=== PATIENT | female | born 1945 | race Caucasian/White ===

== ENCOUNTER → 2017-03-31 | Day surgery (SDC) | payer OTHER ==
[~2017-03-31] VITALS: Ht 167.6 cm; Wt 88.0 kg
[~2017-03-31] MED LIST: ALBU8.5H2 INHALATION; ASPI-973 PO; CITA40TA13 PO; LOSA25TA21 PO; POTA20TA7 PO; RANI300T4 PO; SIMV20TA4 PO; Sodium Chloride LOK Flush 10 mL Syringe IV PRN; fentaNYL-PF 50 mCg/mL 2 mL Inj IVPUSH PRN
[2017-03-31 10:02] VITALS: BP 145/90; PULSE 70; RESP 16; O2SAT 96
[2017-03-31] MEDS: 0.9% Sodium Chloride 1,000 ML IV SCH ×3 (10:13→10:38)
[2017-03-31 10:41] VITALS: BP 124/73; PULSE 67; RESP 16; O2SAT 91
--- NOTE | 2017-03-31 10:47 | ENDO ---
[address] [address] ENDOSCOPY PROCEDURE PATIENT: INNA JIN : 1945 MR#: [id number] ADMIT: 03/31/2017 JOB ID: [id number] DATE OF SERVICE: 03/31/2017 TYPE OF PROCEDURE: Colonoscopy. PREOPERATIVE DIAGNOSIS(ES): Family history of colon cancer. POSTOPERATIVE DIAGNOSIS(ES): Small internal hemorrhoids. ANESTHESIA: Fentanyl 75 mcg and Versed 4 mg IV administered. COMPLICATIONS: None. BLOOD LOSS: Minimal. DESCRIPTION OF PROCEDURE: After risks and benefits explained to the patient, informed consent was obtained. After anesthesia administered, colonoscope was then inserted from the rectum to the cecum. Mucosa carefully examined. Prep of the patient was excellent. After procedure was done, the scope was withdrawn and the procedure terminated. Upon inspection of the anus, no masses, hemorrhoids, ulcers, or fissures that were seen. Throughout the entire examination, there were no polyps, masses, or lesions. Retroflexion showed small internal hemorrhoids. IMPRESSION: Small internal hemorrhoids. RECOMMENDATIONS: Repeat colonoscopy in five years given family history of colon cancer.
[2017-03-31 10:54] VITALS: BP 142/82; PULSE 66; RESP 16; O2SAT 95
== END | disposition home or self-care (01) ==
LOC: END 01:43
PROVIDERS: ATTEND Internal Medicine Gastroenterology
DX: Z12.11 Encounter for screening for malignant neoplasm of colon (principal); K64.8 Other hemorrhoids; Z80.0 Family history of malignant neoplasm of digestive organs; I10 Essential (primary) hypertension; F32.9 Major depressive disorder, single episode, unspecified; K21.9 Gastro-esophageal reflux disease without esophagitis; E78.5 Hyperlipidemia, unspecified; G43.909 Migraine, unspecified, not intractable, without status migrainosus; M06.9 Rheumatoid arthritis, unspecified